=== PATIENT | male | born 1965 | race Hispanic/Latino ===

== ENCOUNTER 2018-05-15 22:15 | Emergency (ER) | payer BC, OTHER ==
[~2018-05-15 22:15] MED LIST: ACET1TAB12 PO; AMLO5TAB4 PO; ATOR20TA65 PO; CALC667C4 PO; FINA5TAB2 PO; Folic Acid/Vitamin B Comp W-C PO; LISI-613 PO; METO50 PO; SITA25TA5 PO
[2018-05-15] MEDS ORDERED: ONDANSETRON HCL 4 MG/2 ML VIAL ONE (23:56)
[2018-05-15] MEDS ORDERED: METOCLOPRAMIDE 10 MG/2 ML VIAL ONE (23:56)
[2018-05-15] MEDS ORDERED: MORPHINE SULFATE 2 MG/ML 1ML SYG ONE (23:57)
[2018-05-16] MEDS ORDERED: AMOXICILLIN/POTASSIUM CLAV 500-125 TABLET PO ONE (00:58)
[2018-05-16] MEDS ORDERED: FENTANYL CITRATE PF 50 MCG/1 ML 2ML VIAL ONE (01:05)
[2018-05-16] MEDS ORDERED: HYDROCODONE/ACETAMINOPHEN 5/325 MG TAB ONE (01:09)
== END 2018-05-16 01:23 | disposition home or self-care (01) ==
LOC: EDH 22:15
DX: S02.2XXA Fracture of nasal bones, initial encounter for closed fracture (principal); S05.11XA Contusion of eyeball and orbital tissues, right eye, initial encounter; W21.07XA Struck by softball, initial encounter; I10 Essential (primary) hypertension; E11.9 Type 2 diabetes mellitus without complications; E78.5 Hyperlipidemia, unspecified; Z94.0 Kidney transplant status; Y93.64 Activity, baseball; Y92.39 Other specified sports and athletic area as the place of occurrence of the external cause; Y99.8 Other external cause status
CPT/HCPCS: 70450; 70486; 96374; 96375 ×2; 99285; J2405; J2765; J3010

== ENCOUNTER 2019-02-01 07:22 | Emergency (ER) | payer BC ==
[2019-02-01 07:48] LABS: BASOPHILS % (AUTO) 1.4 % (0.0-5.0); EOSINOPHILS % (AUTO) 1.8 % (0.0-8.0); HEMATOCRIT 40.7 % (42-54); LYMPHOCYTES % (AUTO) 7.8 % (21.0-51.0); MEAN CORPUSCULAR HEMOGLOBIN 29.8 pg (27.0-33.0); MEAN CORPUSCULAR HGB CONC 34.9 g/dL (32.0-36.0); MEAN CORPUSCULAR VOLUME 85.3 fL (79-99); MONOCYTES % (AUTO) 5.8 % (3.0-13.0); NEUTROPHILS % (AUTO) 83.2 % (40.0-77.0); NUCLEATED RED BLOOD CELLS 0.1 % (0.0-0.19); PLATELET COUNT (AUTO) 240 K/uL (130-400); RED BLOOD CELL COUNT(AUTO) 4.77 MIL/uL (4.50-6.20); RED CELL DISTRIBUTION WIDTH 12.6 % (11.0-15.5); WHITE BLOOD COUNT (AUTO) 9.1 K/uL (4.8-10.8)
[2019-02-01 07:54] LABS: CREATININE 1.6 mg/dL (0.5-1.5); POTASSIUM 4.5 mmol/L (3.5-5.1)
[2019-02-01 08:03] LABS: ALBUMIN 3.8 g/dL (3.5-5.0); BILIRUBIN,DIRECT 0.1 mg/dL (0.0-0.3); BILIRUBIN,TOTAL 0.4 mg/dL (0.2-1.0); TOTAL PROTEIN, SERUM 7.1 g/dL (6.0-8.3)
[2019-02-01 09:00] LABS: ERYTHROCYTE SEDIMENTATION RATE 10 MM/HR (0-20)
[2019-02-01] MEDS ORDERED: MORPHINE SULFATE 2 MG/ML 1ML SYG ONE (09:47)
[2019-02-01] MEDS ORDERED: ACETAMINOPHEN EXTRA STRENGTH 500 MG TABLET ONE (09:47)
[2019-02-01] MEDS ORDERED: CEFTRIAXONE SODIUM 1 GM ONE (09:55)
[2019-02-01] MEDS ORDERED: SODIUM CHLORIDE 0.9% 100 ML IV ONE (09:55)
[2019-02-01] MEDS ORDERED: LEVOFLOXACIN 500 MG TABLET ONE (10:49)
== END 2019-02-01 11:32 | disposition home or self-care (01) ==
LOC: EDH 07:22
DX: L03.116 Cellulitis of left lower limb (principal); E11.9 Type 2 diabetes mellitus without complications; E78.5 Hyperlipidemia, unspecified; I10 Essential (primary) hypertension; I20.9 Angina pectoris, unspecified; Z87.891 Personal history of nicotine dependence; Z94.0 Kidney transplant status
CPT/HCPCS: 36415; 73630; 80048; 80076; 84145; 84550; 85025; 85651; 93971; 96374; 96375; 99285; J0696

== ENCOUNTER 2023-05-24 20:33 | Emergency (ER) | payer BC ==
[~2023-05-24] VITALS: Ht 182.9 cm; Wt 88.5 kg
[~2023-05-24 20:33] MED LIST changes: +FINA-37 PO; -FINA5TAB2 PO; -LISI-613 PO; +LISI20TA24 PO
[2023-05-24] MEDS ORDERED: DILTIAZEM 50MG VIAL IV ONE (21:30)
[2023-05-24] MEDS ORDERED: DILTIAZEM 25MG INJ IVP ONE (21:46)
[2023-05-24 21:49] LABS: CREATININE 1.7 mg/dL (0.5-1.5); POTASSIUM 4.1 mmol/L (3.5-5.1)
[2023-05-24 21:50] LABS: BASOPHILS # (AUTO) 0.05 K/uL (0.00-0.20); BASOPHILS % (AUTO) 0.6 % (0.0-5.0); EOSINOPHILS # (AUTO) 0.07 K/uL (0.00-0.70); EOSINOPHILS % (AUTO) 0.8 % (0.0-8.0); HEMATOCRIT 31.7 % (42-54); IMMATURE GRANULOCYTE ABSOLUTE 0.03 K/uL (0-1); LYMPHOCYTES # (AUTO) 0.1 K/uL (1.0-4.8); LYMPHOCYTES % (AUTO) 0.8 % (21.0-51.0); MEAN CORPUSCULAR HEMOGLOBIN 28.2 pg (27.0-33.0); MEAN CORPUSCULAR HGB CONC 32.5 g/dL (32.0-36.0); MEAN CORPUSCULAR VOLUME 86.8 fL (79-99); MONOCYTES # (AUTO) 0.6 K/uL (0.1-1.0); MONOCYTES % (AUTO) 7.2 % (3.0-13.0); NEUTROPHILS # (AUTO) 7.9 K/uL (1.8-7.7); NEUTROPHILS % (AUTO) 90.3 % (40.0-77.0); PLATELET COUNT (AUTO) 418 K/uL (130-400); RED BLOOD CELL COUNT(AUTO) 3.65 MIL/uL (4.50-6.20); RED CELL DISTRIBUTION WIDTH 12.8 % (11.0-15.5); WHITE BLOOD COUNT (AUTO) 8.7 K/uL (4.8-10.8)
[2023-05-24 21:53] LABS: ALBUMIN 3.6 g/dL (3.5-5.0); BILIRUBIN,TOTAL 0.3 mg/dL (0.2-1.0); TOTAL PROTEIN, SERUM 6.7 g/dL (6.0-8.3)
[2023-05-24 21:56] LABS: INR 0.99 (0.85-1.15); PROTHROMBIN TIME 11.5 SEC (9.6-11.6)
[2023-05-24 21:57] LABS: PARTIAL THROMBOPLASTIN TIME 27.3 SEC (26.3-35.5)
[2023-05-25 02:49] LABS: SARS-CoV-2, RNA, NAAT NEGATIVE SARS CoV-2 (NEGATIVE)
[2023-05-25] MEDS ORDERED: ENOXAPARIN SODIUM 100 MG/1 ML SQ ONE (04:12)
[2023-05-25] MEDS ORDERED: 0.9% NACL 500ML IV.SOLN 500 ML IV SCH (08:00)
[2023-05-25 08:01] LABS: APPEARANCE,URINE CLEAR (CLEAR); BILIRUBIN,URINE NEGATIVE (NEGATIVE); COLOR,URINE COLORLESS (YELLOW); GLUCOSE, URINE (UA) NEGATIVE (NEGATIVE); KETONES,URINE NEGATIVE (NEGATIVE); LEUKOCYTE ESTERASE ,URINE NEGATIVE Leu/uL (NEGATIVE); NITRATE,URINE NEGATIVE (NEGATIVE); OCCULT BLOOD,URINE NEGATIVE (NEGATIVE); PROTEIN,URINE NEGATIVE (NEGATIVE); UROBILINOGEN,URINE 0.2 mg/dL (0.2-1.0)
[2023-05-25 08:11] LABS: ADD UA MICROSCOPIC NO
[2023-05-25 08:16] VITALS: BP 115/80; PULSE 81; RESP 17; O2SAT 100
[2023-05-25] MEDS ORDERED: ENOXAPARIN SODIUM 100 MG/1 ML SQ SCH (09:00)
== END 2023-05-25 08:36 | disposition short-term general hospital (02) ==
LOC: EDH 20:33
DX: I48.91 Unspecified atrial fibrillation (principal); E11.9 Type 2 diabetes mellitus without complications; E78.00 Pure hypercholesterolemia, unspecified; I10 Essential (primary) hypertension; Z79.84 Long term (current) use of oral hypoglycemic drugs; Z79.899 Other long term (current) drug therapy; Z20.822 Contact with and (suspected) exposure to COVID-19
CPT/HCPCS: 99284; 96374; 71045; 87635; 84484; 80053; 85025; 85610; 85730; 81003; 36415; 93005; 96372; J3490 ×2; J7040; J1650

== ENCOUNTER 2023-12-12 19:07 | Emergency (ER) | payer OTHER, BC ==
[~2023-12-12] VITALS: Ht 182.9 cm; Wt 88.5 kg
[2023-12-12] MEDS: ceFAZolin SODIUM 1 GM VIAL IVPB STA (20:09)
[2023-12-12] MEDS: teTANUS/diphthERIA TOXOID [ADULT] 0.5 ML VIAL IM ONE (20:11)
[2023-12-12 20:23] VITALS: BP 156/83; PULSE 60; RESP 20; O2SAT 97
[2023-12-12] MEDS ORDERED: ACET-2079 PO (20:29)
[2023-12-12] MEDS ORDERED: CEPH500B PO (20:29)
[2023-12-12] MEDS: ONDANSETRON 4MG INJ IVP ONE (20:42)
[2023-12-12] MEDS: MORPHINE 2 MG SYG IVP ONE (20:42)
[2023-12-14] MEDS ORDERED: FERR159T2 PO (04:30)
[2023-12-14] MEDS ORDERED: ATOR20TA65 PO (04:30)
[2023-12-14] MEDS ORDERED: NEBI10TA12 PO (04:30)
[2023-12-14] MEDS ORDERED: INSLAN SQ (04:30)
[2023-12-14] MEDS ORDERED: TACR1GRA PO (04:30)
[2023-12-14] MEDS ORDERED: INSU100C14 SQ (04:30)
[2023-12-14] MEDS ORDERED: MYCO500T PO (04:30)
[2023-12-14] MEDS ORDERED: AEC81 PO (09:07)
== END 2023-12-12 21:22 | disposition home or self-care (01) ==
LOC: EDH 19:07
DX: S61.202A Unspecified open wound of right middle finger without damage to nail, initial encounter (principal); E11.9 Type 2 diabetes mellitus without complications; I10 Essential (primary) hypertension; Z79.84 Long term (current) use of oral hypoglycemic drugs; Z79.899 Other long term (current) drug therapy; Z90.89 Acquired absence of other organs; Z94.0 Kidney transplant status; Z98.890 Other specified postprocedural states; W26.8XXA Contact with other sharp object(s), not elsewhere classified, initial encounter; Y93.89 Activity, other specified; Y92.098 Other place in other non-institutional residence as the place of occurrence of the external cause; Y99.8 Other external cause status
CPT/HCPCS: 99284; 96365; 96375; 90714; 73140; 90471; J0690; J2270; J2405

== ENCOUNTER 2025-03-16 09:25 | Emergency (ER) | payer BC, OTHER ==
[~2025-03-16] VITALS: Ht 182.9 cm; Wt 97.5 kg
[~2025-03-16 09:25] MED LIST changes: -ACET1TAB12 PO; +AEC81 PO; -AMLO5TAB4 PO; -CALC667C4 PO; +CYAN-106 PO; +FERR159T2 PO; -FINA-37 PO; +FOLI0.4T6 PO; -Folic Acid/Vitamin B Comp W-C PO; +INSLAN SQ; +INSU100C14 SQ; -LISI20TA24 PO; -METO50 PO; +MYCO500T PO; +NEBI10TA13 PO; -SITA25TA5 PO; +TACR1GRA PO
--- NOTE | 2025-03-16 09:30 | ERN ---
General Chief Complaint: Other Problems Stated Complaint: PAIN TO LEFT FISTULA Time Seen by MD: 09:27 Source: patient History of Present Illness Initial Comments Patient is a 59-year-old male who came to the ER with complaint of pain in his left arm fistula. As per the patient, the fistula was made in 2014 for dialysis but the patient got a transplantation done and the fistula was used only for 3 weeks. The patient experienced swelling and pain in his left arm since the morning. As per the patient, the fistula is well defined usually on the arm but since morning the arm is swollen and the fistula sis not significantly defined. Timing/Duration: 4-6 hours Severity: mild Allergies: Coded Allergies: No Known Drug Allergies (Unverified Allergy, Unknown, 12/14/14) Home Meds Active Scripts Folic Acid (Folic Acid) 0.4 Mg Tablet, 1 MG PO DAILY for 30 Days, #30 TAB Prov:NICOLÁS RUBIO [facility] 12/17/23 Cyanocobalamin (Vitamin B-12) (Vitamin B12) 1,000 Mcg Tablet, 1000 MCG PO DAILY for 30 Days, #30 TAB Prov:NICOLÁS RUBIO [facility] 12/17/23 Reported Medications Aspirin (ASPIRIN 81 MG ECTAB) 81 Mg Ectab, 81 MG PO DAILY, TAB.EC 12/14/23 Insulin Lispro (Humalog) 100 Unit/Ml Cartridge, 0 SQ ACHS, CARTRIDGE HUMALOG SS 0-150 = 0 151-200= 4 201-250= 6 251-300= 8 301-350= 10 12/14/23 Nebivolol HCl (Nebivolol HCl) 10 Mg Tablet, 10 MG PO HS, TAB 12/14/23 Ferrous Sulfate, Dried (Iron) 159 Mg (45 Mg Iron) Tablet.er, 65 MG PO 0800AM, TAB 12/14/23 Mycophenolate Mofetil (Cellcept) 500 Mg Tablet, 500 MG PO BID, TAB 12/14/23 Tacrolimus (Prograf) 1 Mg Gran.pack, 1 MG PO BID, 12/14/23 Insulin Glargine,Hum.rec.anlog (Lantus) 100 Unit/Ml Inj, 10 UNITS SQ AM, ML 12/14/23 Atorvastatin Calcium (Atorvastatin Calcium) 20 Mg Tablet, 20 MG PO HS, TAB 12/14/14 Past Medical History Past Medical History: Diabetes-Type I, Diabetes-Type II, Hypertension, Other Medical History Other: KIDNEY TRANSPLANT Past Surgical History: Tonsillectomy, Other Surgical History Other: KIDNEY TRANSPLANT, LEFT KNEE, LEFT ANKLE Physical Exam Extremities Comment Patient has a av fistula on the left arm that was made in 2014 for dialysis Results Laboratory and Microbiology Lab and Micro Result Laboratory Tests Test 03/16/25 10:07 White Blood Count 10.9 K/uL (4.8-10.8) H Red Blood Count 3.83 MIL/uL (4.50-6.20) L Hemoglobin 12.5 g/dL (14.0-18.0) L Hematocrit 37.0 % (42-54) L Mean Corpuscular Volume 96.6 fL (79-99) Mean Corpuscular Hemoglobin 32.6 pg (27.0-33.0) Mean Corpuscular Hemoglobin Concent 33.8 g/dL (32.0-36.0) Red Cell Distribution Width 14.6 % (11.0-15.5) Platelet Count 213 K/uL (130-400) Mean Platelet Volume 8.8 fL (7.5-10.5) Nucleated Red Blood Cells 0.0 % (0.0-0.19) Sodium Level 131 mmol/L (136-145) L Potassium Level 4.5 mmol/L (3.5-5.1) Chloride Level 96 mmol/L (101-111) L Carbon Dioxide Level 30 mmol/L (21-32) Blood Urea Nitrogen 19 mg/dL (7-18) H Creatinine 1.3 mg/dL (0.5-1.3) Glomerular Filtration Rate Calc 64 mL/min (>90) Random Glucose 138 mg/dL (70-105) H Total Calcium 8.6 mg/dL (8.5-10.1) MDM MDM: Differential diagnosis: Partial superficial vein thrombosis, partial cephalic vein thrombosis, with the Rationale: Tests considered and ordered secondary to shared decision making include: Previous outside records reviewed: Old ER visits. Risk of complication and/or morbidity or mortality of patient management: None Medications-Per medication reconciliation Need for hospitalization: Patient does not meet criteria for hospitalization. Need for emergency major/minor surgery: No Patient is a 59-year-old gentleman coming in complaining of left arm discomfort. Patient has a fistula that has not been used. Ultrasound disclose a partial cephalic vein thrombosis. Based on general [employer] anticoagulation therapy is generally not routinely recommended for isolated partial superficial vein thrombosis of the cephalic vein unless high features are present such as a extensive thrombosis severe symptoms history of VTE. Patient will be discharged in stable condition I did advised him appropriate follow up with PCP and/or organ recovery coordinator for ongoing evaluation ED Course Orders Procedure Category Date Status Time Cbc Without LAB 03/16/25 Complete Differential 09:30 Basic Metabolic Panel LAB 03/16/25 Complete 09:30 Us Venous Doppler US 03/16/25 Resulted Unilateral 09:30 Vital Signs Date Time Temp Pulse Resp B/P (MAP) Pulse Ox O2 Delivery O2 Flow Rate FiO2 03/16/25 10:17 98.1 64 19 168/90 97 Room Air* 0 21 03/16/25 09:26 97.9 70 16 170/99 99 Room Air 0 DX & DISP Disposition: Discharge Departure Impression: Primary Impression: Partial thrombosis Condition: Stable Additional Instructions: *Follow up with your primary care physician in 2 - 3 days after discharge. *Continue all medications as prescribed. Do not discontinue or change dosages without consulting your PCP. *Gradually resume normal activities as tolerated. *Continue a balanced diet . Reduce salt intake to help manage BP. *Seek immediate medical attention if you experience chest pain, SOB or severe headache. Referrals: JUNITO ROSALES MD (PCP) ALXI FARIAS MD Time of Disposition: 11:15 ANAHY BROOKS MD Mar 16, 2025 09:30 NORRIS ARIAS MD Mar 16, 2025 11:18
[2025-03-16 10:16] LABS: NUCLEATED RED BLOOD CELLS 0.0 % (0.0-0.19); PLATELET COUNT (AUTO) 213.0 K/uL (130-400); RED BLOOD CELL COUNT(AUTO) 3.83 MIL/uL (4.50-6.20); RED CELL DISTRIBUTION WIDTH 14.6 % (11.0-15.5); WHITE BLOOD COUNT (AUTO) 10.9 K/uL (4.8-10.8)
[2025-03-16 10:17] VITALS: BP 168/90; PULSE 64; RESP 19; TEMP 98; O2SAT 97
[2025-03-16 10:24] LABS: CREATININE 1.3 mg/dL (0.5-1.3); GLOMERULAR FILTR. RATE CALC 64.0 mL/min (>90); GLUCOSE,RANDOM 138.0 mg/dL (70-105); SODIUM SERUM 131.0 mmol/L (136-145); UREA NITROGEN, BLOOD 19.0 mg/dL (7-18)
--- NOTE | 2025-03-16 10:59 | HMCIMG ---
EXAMINATION: Ultrasound left upper limb venous Doppler. CLINICAL HISTORY: Left arm swelling. TECHNIQUE: Grayscale, color Doppler, and spectral Doppler evaluation of the left upper limb venous system was performed with compression techniques. COMPARISON: None provided. FINDINGS: LEFT UPPER LIMB VEINS: Partial thrombus involving the left cephalic vein, which is enlarged and measures 15 mm. DEEP VEINS: The basilic, axillary, and subclavian veins are patent and compressible with normal respiratory phasicity and augmentation. SUPERFICIAL VEINS: The basilic vein is patent without thrombus. No other superficial venous thrombosis. LYMPH NODES: No enlarged lymph nodes. SOFT TISSUES: The surrounding soft tissues are unremarkable. Non-functioning AV fistula. IMPRESSION: Partial thrombus in the enlarged left cephalic vein. No evidence of deep vein thrombosis in the left upper limb. /[place]
--- NOTE | 2025-03-16 11:41 | NUR ---
DC PATIENT WAS DC'D BY DR ARIAS I EXPLAINED TO PATIENT TO FOLLOW UP WITH THEIR PCP IN 2-3 DAYS, PROVIDED INFO BASED ON DIAGNOSIS, AND LABWORK WELL ULTRASOUND RESULTS, I ALSO PROVIDED PATIENT WITH WARM PACKS, PATIENT AMBULATED OUT OF ED, NO COMPLICATIONS
== END 2025-03-16 11:30 | disposition home or self-care (01) ==
LOC: EDH 09:25
DX: I82.890 Acute embolism and thrombosis of other specified veins (principal); E10.9 Type 1 diabetes mellitus without complications; I10 Essential (primary) hypertension; Z79.621 Long term (current) use of calcineurin inhibitor; Z79.624 Long term (current) use of inhibitors of nucleotide synthesis; Z79.82 Long term (current) use of aspirin; Z90.89 Acquired absence of other organs; Z94.0 Kidney transplant status
CPT/HCPCS: 36415; 80048; 85027; 93971; 99284

== ENCOUNTER 2025-03-20 13:53 | Emergency (ER) | payer OTHER, BC ==
[~2025-03-20] VITALS: Ht 182.9 cm; Wt 96.6 kg
--- NOTE | 2025-03-20 14:11 | NUR ---
PT IN ROOM
[2025-03-20 15:13] LABS: IMMATURE GRANULOCYTE ABSOLUTE 0.04 K/uL (0-1); NUCLEATED RED BLOOD CELLS 0.0 % (0.0-0.19); PLATELET COUNT (AUTO) 312 K/uL (130-400); RED BLOOD CELL COUNT(AUTO) 3.72 MIL/uL (4.50-6.20); RED CELL DISTRIBUTION WIDTH 14.7 % (11.0-15.5); WHITE BLOOD COUNT (AUTO) 11.3 K/uL (4.8-10.8)
[2025-03-20 15:22] LABS: CREATININE 1.3 mg/dL (0.5-1.3); GLOMERULAR FILTR. RATE CALC 64.0 mL/min (>90); GLUCOSE,RANDOM 172.0 mg/dL (70-105); SODIUM SERUM 132.0 mmol/L (136-145); UREA NITROGEN, BLOOD 16.0 mg/dL (7-18)
--- NOTE | 2025-03-20 15:23 | NUR ---
Malaika solitario in ED - 03/20/25 at 1525 by [email or web address] STEC NOTIFIED OF EMERGENCY TRANSFER
[2025-03-20] MEDS: 0.9%NACL 1000ML 1,000 ML IV SCH (16:00)
[2025-03-20] MEDS: NA ZIRCON CYCLOSIL(LOKELMA 10GM) PO SCH (16:01)
--- NOTE | 2025-03-20 16:33 | HMCIMG ---
EXAM: US for Deep Venous Thrombosis, right Upper Extremity. CLINICAL HISTORY: r/o dvt TECHNIQUE: Real-time ultrasound scan of the veins of the right upper extremity with color Doppler flow, spectral waveform analysis and compression. COMPARISON: None provided. FINDINGS: VEINS: Left brachiocephalic arteriovenous fistula in place, S/P 2014. The fistula is no longer in use following renal transplantation. Echogenic thrombus is identified within the cephalic vein, associated with an enlarged lumen and absent flow, consistent with cephalic vein thrombosis. The internal jugular and subclavian veins demonstrate flow. The axillary, basilic, and brachial veins are echolucent, compressible, and demonstrate normal color Doppler flow. SOFT TISSUES: No acute finding. IMPRESSION: Left brachiocephalic arteriovenous fistula in place, S/P 2014. The fistula is no longer in use following renal transplantation. Echogenic thrombus is identified within the cephalic vein, associated with an enlarged lumen and absent flow, consistent with left cephalic vein thrombosis. /[place]
[2025-03-20] MEDS ORDERED: CEPH500C2 PO (16:54)
--- NOTE | 2025-03-20 16:57 | ERN ---
General Chief Complaint: Other Problems Stated Complaint: LEFT ARM NON-FUNCTIONING FISTULA Time Seen by MD: 14:00 Time Seen by Midlevel: 14:00 Source: patient History of Present Illness Initial Comments The patient is a 51-year-old male with a past medical history of a renal transplant presenting to the ER for evaluation of redness and swelling to his left upper arm. The patient has an AV fistula in place to the left upper arm but is no longer functioning after he had the renal transplant. He was seen in our emergency department four days ago for the same complaints where he had an ultrasound performed which revealed a superficial thrombus he was discharged home. Over the next couple of days he developed worsening redness to the upper extremity. He specifically denies any fever, chills, or any other symptoms at this time. Allergies: Coded Allergies: No Known Drug Allergies (Unverified Allergy, Unknown, 12/14/14) Home Meds Active Scripts Folic Acid (Folic Acid) 0.4 Mg Tablet, 1 MG PO DAILY for 30 Days, #30 TAB [facility]23 Cyanocobalamin (Vitamin B-12) (Vitamin B12) 1,000 Mcg Tablet, 1000 MCG PO DAILY for 30 Days, #30 TAB Prov:NICOLÁS RUBIO [facility] 12/17/23 Reported Medications Aspirin (ASPIRIN 81 MG ECTAB) 81 Mg Ectab, 81 MG PO DAILY, TAB.EC 12/14/23 Insulin Lispro (Humalog) 100 Unit/Ml Cartridge, 0 SQ ACHS, CARTRIDGE HUMALOG SS 0-150 = 0 151-200= 4 201-250= 6 251-300= 8 301-350= 10 12/14/23 Nebivolol HCl (Nebivolol HCl) 10 Mg Tablet, 10 MG PO HS, TAB 12/14/23 Ferrous Sulfate, Dried (Iron) 159 Mg (45 Mg Iron) Tablet.er, 65 MG PO 0800AM, T AB 12/14/23 Mycophenolate Mofetil (Cellcept) 500 Mg Tablet, 500 MG PO BID, TAB 12/14/23 Tacrolimus (Prograf) 1 Mg Gran.pack, 1 MG PO BID, 12/14/23 Insulin Glargine,Hum.rec.anlog (Lantus) 100 Unit/Ml Inj, 10 UNITS SQ AM, ML 12/14/23 Atorvastatin Calcium (Atorvastatin Calcium) 20 Mg Tablet, 20 MG PO HS, TAB 12/14/14 Past Medical History Past Medical History: Diabetes-Type I, Diabetes-Type II, Hypertension, Renal Failure, Other Medical History Other: KIDNEY TRANSPLANT Past Surgical History: Tonsillectomy, Other, LAVA Surgical History Other: KIDNEY TRANSPLANT, LEFT KNEE, LEFT ANKLE ROS Dictation CONSTITUTIONAL: Negative except for HPI HEAD/FACE: Negative except for HPI EENT: Negative except for HPI RESPIRATORY: Negative except for HPI GASTROINTESTINAL/ABDOMINAL: Negative except for HPI GENITOURINARY: Negative except for HPI MUSCULOSKELETAL: Negative except for HPI INTEGUMENTARY: Negative except for HPI NEUROLOGICAL/PSYCH: Negative except for HPI HEMATOLOGIC/LYMPHATIC: Negative except for HPI All Systems Negative, Except as noted above. 13 point review of systems assessed and all negative except for above. Physical Exam Physical Exam Dictation Vital Signs reviewed General Appearance: Alert, oriented x 3, no acute distress, well developed, nourished. Head and Face: non-traumatic. Eyes: PERRL, pink conjunctivas, eyelid no trauma, anterior chamber with arcus senilis. Ears: Pinnas intact and no signs of trauma or erythema ear canals clear and no discharge TM no erythema Nose: No discharge, no bleeding. Oropharynx: Mouth normal, tongue pink, pharynx clear,no erythema, tonsils no exudates, no abscesses noted, mucous membrane moist Neck: Supple, non-tender, no thyromegaly, no masses, no JVD, no bruits Breast:Deferred Chest:No tenderness, no crepitus, no paradoxical movement, no retractions Lungs:Clear, well-ventilated, symmetric, no rales, no wheezing, no rhonchi, no stridor, good breath sounds bilaterally Heart: Regular rate, regular rhythm, no murmur, no gallops Vascular: no peripheral edema, Abdomen: Soft, positive bowel sounds, nondistended, no guarding, nontender, no rebound, no masses no hepatomegaly, no splenomegaly, no Carcamo's sign, no hernias. Rectal: Deferred Genital: Deferred Neurological: Normal speech, motor function intact, sensory function intact Musculoskeletal: Neck nontender, full range of motion, back nontender, full range of motion, Extremities: nontender, full range of motion Skin: Color pink, dry, no turgor, no rash, no lacerations, no abrasions, no contusions. Lymphatic: Deferred Results Laboratory and Microbiology Lab and Micro Result Laboratory Tests Test 03/20/25 14:42 White Blood Count 11.3 K/uL (4.8-10.8) H Red Blood Count 3.72 MIL/uL (4.50-6.20) L Hemoglobin 12.2 g/dL (14.0-18.0) L Hematocrit 36.0 % (42-54) L Mean Corpuscular Volume 96.8 fL (79-99) Mean Corpuscular Hemoglobin 32.8 pg (27.0-33.0) Mean Corpuscular Hemoglobin Concent 33.9 g/dL (32.0-36.0) Red Cell Distribution Width 14.7 % (11.0-15.5) Platelet Count 312 K/uL (130-400) Mean Platelet Volume 9.1 fL (7.5-10.5) Immature Granulocyte % (Auto) 0.4 % (0-1) Neutrophils (%) (Auto) 91.4 % (40.0-77.0) H Lymphocytes (%) (Auto) 5.1 % (21.0-51.0) L Monocytes (%) (Auto) 2.7 % (3.0-13.0) L Eosinophils (%) (Auto) 0.3 % (0.0-8.0) Basophils (%) (Auto) 0.1 % (0.0-5.0) Neutrophils # (Auto) 10.3 K/uL (1.8-7.7) H Lymphocytes # (Auto) 0.6 K/uL (1.0-4.8) L Monocytes # (Auto) 0.3 K/uL (0.1-1.0) Eosinophils # (Auto) 0.03 K/uL (0.00-0.70) Basophils # (Auto) 0.01 K/uL (0.00-0.20) Absolute Immature Granulocyte (auto 0.04 K/uL (0-1) Nucleated Red Blood Cells 0.0 % (0.0-0.19) White Cell Morphology Comment See comments Sodium Level 132 mmol/L (136-145) L Potassium Level 5.2 mmol/L (3.5-5.1) H Chloride Level 98 mmol/L (101-111) L Carbon Dioxide Level 27 mmol/L (21-32) Blood Urea Nitrogen 16 mg/dL (7-18) Creatinine 1.3 mg/dL (0.5-1.3) Glomerular Filtration Rate Calc 64 mL/min (>90) Random Glucose 172 mg/dL (70-105) H Lactic Acid Level 1.7 mmol/L (0.8-2.5) Total Calcium 9.3 mg/dL (8.5-10.1) Labs Reviewed?: Yes MDM MDM: The patient is a 51-year-old male with a past medical history of a renal transplant presenting to the ER for evaluation of redness and swelling to his left upper arm. The patient has an AV fistula in place to the left upper arm but is no longer functioning after he had the renal transplant. He was seen in our emergency department four days ago for the same complaints where he had an ultrasound performed which revealed a superficial thrombus he was discharged home. Over the next couple of days he developed worsening redness to the upper extremity. He specifically denies any fever, chills, or any other symptoms at this time. Plan On physical examination there is some mild erythema to the left upper arm surrounding the AV fistula. No drainable abscesses noted. Vital signs are stable. Patient is afebrile and nontoxic appearing. His CBC shows slight leukocytosis with a left shift. His chemistries show an elevated potassium level of 5.3. The patient was given Lokelma p.o. and was started on IV ceftriaxone for presumed cellulitis. The remainder of his blood work is stable. His lactic acid is normal. His Doppler ultrasound is unchanged when compared to the ultrasound performed four days ago. No evidence of deep vein thrombosis. The patient will be discharged home on oral antibiotics. He has an appointment with his specialist up in [place] on Sunday and another appointment with his primary care doctor next week on Sunday. He was advised to keep these appointments or return to the emergency department if he develops any new or worsening symptoms. The patient is comfortable with this plan and all questions have been answered. Differential diagnosis: Cellulitis, abscess, DVT There are no social concerns with this patient. Prescription drug management Prescriptions will include: Cephalexin Medical management and examination interpretation discussions were had by me with other qualified healthcare professionals as indicated for the patient's care. ED Course Orders Procedure Category Date Status Time Cbc With Differential LAB 03/20/25 Complete 14:32 Basic Metabolic Panel LAB 03/20/25 Complete 14:32 Lactic Acid LAB 03/20/25 Complete 14:32 Us Venous Doppler US 03/20/25 Resulted Unilateral 14:32 0.9%Nacl 1000ml (Ns PHA 03/20/25 In Process 1000ml) 16:00 Na Zircon PHA 03/20/25 Logged Cyclosil-Lokelma 10g 16:00 Ceftriaxone 1g Vial PHA 03/20/25 In Process (Rocephine 1g Inj) 16:00 Current Medications Medications (Trade) Dose Ordered Sig/Jackson Route PRN Reason Start Time Stop Time Status Last Admin Dose Admin Ceftriaxone Sodium (ROCEphine 1G INJ) 1 gm ONCE IVPB 03/20/25 16:00 03/20/25 20:00 03/20/25 16:00 Sodium Chloride 1,000 ml @ 0 mls/hr ONCE IV 03/20/25 16:00 03/20/25 20:00 03/20/25 16:00 Sodium Zirconium Cyclosilicate (Lokelma 10gm Powder) 10 gm ONCE PO 03/20/25 16:00 03/20/25 20:00 03/20/25 16:01 Vital Signs Date Time Temp Pulse Resp B/P (MAP) Pulse Ox O2 Delivery O2 Flow Rate FiO2 03/20/25 16:18 97.7 64 12 135/76 99 Room Air* 0 03/20/25 14:11 97.7 69 18 174/91 99 Room Air* 0 03/20/25 13:56 97.7 69 18 174/91 99 Room Air DX & DISP Disposition: Discharge Departure Impression: Primary Impression: Cellulitis of left upper arm Additional Impressions: Superficial vein thrombosis, History of kidney transplant Condition: Stable Scripts Cephalexin (Cephalexin) 500 Mg Capsule 1 CAP PO TID for 10 Days, #30 CAP 0 Refills Prov: MARIANA CONNELL PAC 03/20/25 Referrals: PARVIZ ROCA (PCP) I have reviewed the case, and I agree with, Diagnosis and Plan I performed the substantive portion of the visit. I have reviewed and personally made and approve the management plan that is documented in the note by myself or the SALUD. I acknowledge for responsibility for the patient's management plan. MARIANA CONNELL PAC Mar 20, 2025 16:57
[2025-03-20 17:27] VITALS: BP 128/86; PULSE 65; RESP 12; TEMP 97.7; O2SAT 98
== END 2025-03-20 17:32 | disposition home or self-care (01) ==
LOC: EDH 13:53
DX: L03.114 Cellulitis of left upper limb (principal); I82.612 Acute embolism and thrombosis of superficial veins of left upper extremity; E10.9 Type 1 diabetes mellitus without complications; I10 Essential (primary) hypertension; I77.0 Arteriovenous fistula, acquired; Z79.621 Long term (current) use of calcineurin inhibitor; Z79.624 Long term (current) use of inhibitors of nucleotide synthesis; Z79.82 Long term (current) use of aspirin; Z90.89 Acquired absence of other organs; Z94.0 Kidney transplant status
CPT/HCPCS: 99285; 96365; 93971; 96361; 80048; 85025; 83605; 36415; J7030; J0696

== ENCOUNTER 2025-03-22 10:41 | Emergency (ER) | payer OTHER, BC ==
[~2025-03-22] VITALS: Ht 182.9 cm; Wt 96.6 kg
[~2025-03-22 10:41] MED LIST changes: +CEPH500C2 PO
--- NOTE | 2025-03-22 10:46 | ERN ---
ED Note History of Present Illness Stated Complaint: TACHCARDIA Chief Complaint: Rapid Heart Rate Time Seen by MD: 10:45 Time Seen by Midlevel: 10:45 Dictation: Mr. Oneil is a 59-year-old gentleman with history of hypertension, hyperlipidemia, type 2 diabetes, anemia of chronic disease, atrial fibrillation, and CKD (post renal transplant x2) who presented to the emergency department this morning for evaluation of rapid heart rate. He states that he woke at 0300 supported not feeling well . He states that he has been having intermittent palpitations, fatigue, and dyspnea on exertion. His states that BP readings were elevated and "inconsistent" this morning. He is currently on an antibiotic (cephalexin) for a an infection to left upper arm at site of non functioning AV fistula. He denies fever, chills, cough, chest pain, edema, abdominal pain, nausea, vomiting, hematemesis, constipation, diarrhea, melena, hematochezia, dysuria, headache, dizziness, or focal weakness/paresthesia Allergies: Coded Allergies: No Known Drug Allergies (Unverified Allergy, Unknown, 12/14/14) Home Meds Active Scripts Cephalexin (Cephalexin) 500 Mg Capsule, 1 CAP PO TID for 10 Days, #30 CAP 0 Refills Prov:MARIANA CONNELL 03/20/25 Folic Acid (Folic Acid) 0.4 Mg Tablet, 1 MG PO DAILY for 30 Days, #30 TAB Prov:NICOLÁS RUBIO [facility] 12/17/23 Cyanocobalamin (Vitamin B-12) (Vitamin B12) 1,000 Mcg Tablet, 1000 MCG PO DAILY for 30 Days, #30 TAB Prov:NICOLÁS RUBIO [facility] 12/17/23 Reported Medications Aspirin (ASPIRIN 81 MG ECTAB) 81 Mg Ectab, 81 MG PO DAILY, TAB.EC 12/14/23 Insulin Lispro (Humalog) 100 Unit/Ml Cartridge, 0 SQ ACHS, CARTRIDGE HUMALOG SS 0-150 = 0 151-200= 4 201-250= 6 251-300= 8 301-350= 10 12/14/23 Nebivolol HCl (Nebivolol HCl) 10 Mg Tablet, 10 MG PO HS, TAB 12/14/23 Ferrous Sulfate, Dried (Iron) 159 Mg (45 Mg Iron) Tablet.er, 65 MG PO 0800AM, TAB 12/14/23 Mycophenolate Mofetil (Cellcept) 500 Mg Tablet, 500 MG PO BID, TAB 12/14/23 Tacrolimus (Prograf) 1 Mg Gran.pack, 1 MG PO BID, 12/14/23 Insulin Glargine,Hum.rec.anlog (Lantus) 100 Unit/Ml Inj, 10 UNITS SQ AM, ML 12/14/23 Atorvastatin Calcium (Atorvastatin Calcium) 20 Mg Tablet, 20 MG PO HS, TAB 12/14/14 Past Medical History Past Medical History: A-Fib, Diabetes-Type II, Hypertension, Renal Failure, Other Additional Past Medical Hx: KIDNEY TRANSPLANT Surgical History: Tonsillectomy, Other, LAVA Surgical History Other: KIDNEY TRANSPLANT, LEFT KNEE, LEFT ANKLE PSYCH History: no pertinent psych hx Social History: Negative, Lives with family RN Note Reviewed/Agreed w/PFSH: Yes Review of System Dictation REVIEW OF SYSTEMS: CONSTITUTIONAL: Patient denies fevers, chills, sweats and weight changes. Reports fatigue EYES: Patient denies any visual symptoms. EARS, NOSE, AND THROAT: No difficulties with hearing. No symptoms of rhinitis or sore throat. CARDIOVASCULAR: Patient denies chest pains, orthopnea and paroxysmal nocturnal dyspnea. Reports palpitations/rapid heart rate. States he has a history of atrial fibrillation. RESPIRATORY: No wheezing or cough. Reports shortness of breath with activity; walking. GI: No nausea, vomiting, diarrhea, constipation, abdominal pain, hematochezia or melena. : No urinary hesitancy or dribbling. No nocturia or urinary frequency. No abnormal urethral discharge. MUSCULOSKELETAL: No myalgias or arthralgias. NEUROLOGIC: No chronic headaches, no seizures. Patient denies numbness, tingling or weakness. PSYCHIATRIC: Patient denies problems with mood disturbance. No problems with anxiety. ENDOCRINE: No excessive urination or excessive thirst. DERMATOLOGIC: States he is currently on cephalexin for skin infection to left upper arm at site of non functioning left AV fistula. Initial Vital Sign VS Vital Signs Date Time Temp Pulse Resp B/P (MAP) Pulse Ox O2 Delivery O2 Flow Rate FiO2 03/22/25 10:44 97.9 129 18 146/89 98 Room Air 03/22/25 11:06 0 21 Physical Exam Dictation Vital signs: Reviewed. Afebrile Constitutional: No acute distress. Cough. Significant other at bedside. Head/Face: Normocephalic, atraumatic. Eyes: Periorbital areas with no swelling, redness, or edema. Lids and lashes are normal. Conjunctival injection is absent. Sclera anicteric. Pupils equal, round, reactive to light. ENT: Pinnas intact and no signs of trauma or erythema. Ear canals clear and no discharge. TMs no erythema. No nasal discharge or bleeding noted. Oropharynx with no exudate, redness, swelling, masses, exudates, or evidence of obstruction. Uvula midline. Mucous membranes moist. Neck: Trachea midline, no masses palpated, and no cervical lymphadenopathy. No swelling. Supple, full range of motion. Chest/Axilla: No tenderness, no crepitus, no paradoxical movement, no retractions. Cardiovascular: Regular rate, regular rhythm, no murmur, no gallops. Symmetric pulses. No peripheral edema. As non functioning AV fistula left upper arm. BP 146/89. Twelve lead EKG reflects atrial fibrillation with ventricular rate 120. Respiratory: Respirations even and unlabored. Lung sounds clear; no wheezes, rales or rhonchi. Room air SpO2 98%. Gastrointestinal: Inspection is normal. No distention is appreciated. Bowel sounds are normal. No mass or organomegaly . There is no tenderness. No rebound. No rigidity. No voluntary or involuntary guarding. No Carcamo's sign. Neurological: Normal speech, gross motor function intact, gross sensory function intact. No focal weakness/Paresthesia. Musculoskeletal/Extremities: All extremities have full range of motion, no pain or tenderness on palpation. Symmetric pulses. Integumentary: Intact. Skin is normal color, warm and dry. Cap refill less than 3 seconds. Results (Laboratory/Radiology) Laboratory/Radiology Laboratory Tests Test 03/22/25 11:04 03/22/25 11:23 White Blood Count 11.4 K/uL (4.8-10.8) H Red Blood Count 3.96 MIL/uL (4.50-6.20) L Hemoglobin 12.9 g/dL (14.0-18.0) L Hematocrit 37.3 % (42-54) L Mean Corpuscular Volume 94.2 fL (79-99) Mean Corpuscular Hemoglobin 32.6 pg (27.0-33.0) Mean Corpuscular Hemoglobin Concent 34.6 g/dL (32.0-36.0) Red Cell Distribution Width 14.3 % (11.0-15.5) Platelet Count 369 K/uL (130-400) Mean Platelet Volume 9.0 fL (7.5-10.5) Immature Granulocyte % (Auto) 0.4 % (0-1) Neutrophils (%) (Auto) 87.6 % (40.0-77.0) H Lymphocytes (%) (Auto) 6.8 % (21.0-51.0) L Monocytes (%) (Auto) 4.8 % (3.0-13.0) Eosinophils (%) (Auto) 0.2 % (0.0-8.0) Basophils (%) (Auto) 0.2 % (0.0-5.0) Neutrophils # (Auto) 10.0 K/uL (1.8-7.7) H Lymphocytes # (Auto) 0.8 K/uL (1.0-4.8) L Monocytes # (Auto) 0.5 K/uL (0.1-1.0) Eosinophils # (Auto) 0.02 K/uL (0.00-0.70) Basophils # (Auto) 0.02 K/uL (0.00-0.20) Absolute Immature Granulocyte (auto 0.04 K/uL (0-1) Nucleated Red Blood Cells 0.0 % (0.0-0.19) Sodium Level 132 mmol/L (136-145) L Potassium Level 4.5 mmol/L (3.5-5.1) Chloride Level 98 mmol/L (101-111) L Carbon Dioxide Level 24 mmol/L (21-32) Blood Urea Nitrogen 22 mg/dL (7-18) H Creatinine 1.4 mg/dL (0.5-1.3) H Glomerular Filtration Rate Calc 58 mL/min (>90) Random Glucose 213 mg/dL (70-105) H Total Calcium 9.1 mg/dL (8.5-10.1) Magnesium Level 1.50 mg/dL (1.80-2.40) L Total Bilirubin 0.4 mg/dL (0.2-1.0) Direct Bilirubin 0.1 mg/dL (0.0-0.3) Aspartate Amino Transf (AST/SGOT) 10 U/L (10-37) Alanine Aminotransferase (ALT/SGPT) 17 U/L (12-78) Alkaline Phosphatase 104 U/L (50-136) Troponin I High Sensitivity 18 ng/L (4-75) B-Type Natriuretic Peptide 233 pg/mL (0-100) H Total Protein 7.2 g/dL (6.0-8.3) Albumin 3.4 g/dL (3.5-5.0) L Urine Color LIGHT-YELLOW (YELLOW) Urine Appearance CLEAR (CLEAR) Urine pH 6.0 (5.0-8.0) Urine Specific [place] 1.016 (1.001-1.031) Urine Protein NEGATIVE mg/dL (NEGATIVE) Urine Glucose (UA) 200 mg/dL (NEGATIVE) H Urine Ketones NEGATIVE mg/dL (NEGATIVE) Urine Occult Blood SMALL (NEGATIVE) H Urine Nitrate NEGATIVE (NEGATIVE) Urine Bilirubin NEGATIVE mg/dL (NEGATIVE) Urine Urobilinogen 0.2 mg/dL (0.2-1.0) Urine Leukocyte Esterase NEGATIVE [place]/uL Urine RBC 0-1 /HPF (0-1) Urine WBC 0-1 /HPF (0-1) Urine Squamous Epithelial Cells None Seen /HPF (0-2) Urine Bacteria Rare /HPF (None Seen) Labs Reviewed?: Yes EKG Comment: EKG Interpretation: Time Reviewed: 1057 Ventricular rate: 120 bpm [place] Interval: N/A QRS duration: 80 ms Atrial fibrillation with ventricular rate 120. No ST elevation EKG Reviewed and interpreted by Dr. Flash Arias EKG Interpretation: REPEAT Time Reviewed: 1132 Ventricular rate: 72 bpm [place] Interval: 151 ms QRS duration: [address] segment elevation or depression. Clinical impression: sinus rhythm EKG Reviewed and interpreted by Dr. Flash Arias X-RAY Comment: PATIENT: RON ONEIL MR#: [id number] : 1965 SEX: M AGE: 59 LOCATION: [facility] ORDER 1047 STATUS: REG ER REPORT#: [id number] SERVICE 1046 REASON: shortness of breath ORDERING PHYSICIAN: VANI JEFFREY PROCEDURE: CXR1VW - CHEST 1VW EXAM: CR Chest, 1 View. CLINICAL HISTORY: shortness of breath COMPARISON: None provided. FINDINGS: LUNGS: There is no mass, infiltrate, or acute pulmonary abnormality. PLEURAL SPACES: No pleural effusion or pneumothorax. MEDIASTINUM: The cardiomediastinal silhouette is within normal limits. BONES: No acute osseous abnormality. IMPRESSION: No acute cardiopulmonary pathology is evident. /[place] DICTATED BY: SMITH FINLEY Jr., MD DATE: 03/22/25 1232 ELECTRONICALLY SIGNED BY: SMITH FINLEY Jr., MD DATE: 03/22/25 1232 ED Course ED Course Orders Procedure Category Date Status Time Saline Lock Iv CPOE 03/22/25 Transmitted 10:46 Cbc With Differential LAB 03/22/25 Complete 10:46 Basic Metabolic Panel LAB 03/22/25 Complete 10:46 Magnesium LAB 03/22/25 Complete 10:46 Hepatic Function Panel LAB 03/22/25 Complete 10:46 Troponin I High LAB 03/22/25 Complete Sensitivity 10:46 B-Type Natriuretic LAB 03/22/25 Complete Peptide 10:46 12 Lead Ekg Tracing- EKG 03/22/25 Resulted Technical 10:46 Chest 1vw RAD 03/22/25 Resulted 10:46 Metoprolol Tartrate PHA 03/22/25 Complete (Lopressor) 11:30 12 Lead Ekg Tracing- EKG 03/22/25 Resulted Technical 11:40 Urinalysis Profile LAB 03/22/25 Complete 11:45 Metoprolol Tartrate PHA 03/22/25 Complete 25 Mg Tab (Lopressor 12:00 Magnesium 2gm Premix PHA 03/22/25 Complete 50ml (Magnesium 2gm 13:00 Magnesium Oxide PHA 03/22/25 Complete (Mag-Ox) 13:00 Current Medications Medications (Trade) Dose Ordered Sig/Jackson Route PRN Reason Start Time Stop Time Status Last Admin Dose Admin Magnesium Oxide (Mag-Ox) 400 mg ONCE ONCE PO 03/22/25 13:00 03/22/25 13:01 DC Magnesium Sulfate 50 ml @ 0 mls/hr PROTOCOL IV 03/22/25 13:00 03/22/25 14:34 DC 03/22/25 13:11 Metoprolol Tartrate (loprESSOR) 5 mg ONCE ONCE IV 03/22/25 11:30 03/22/25 11:45 DC Metoprolol Tartrate (loprESSOR) 25 mg ONCE ONCE PO 03/22/25 12:00 03/22/25 12:01 DC 03/22/25 13:01 Vital Signs Date Time Temp Pulse Resp B/P (MAP) Pulse Ox O2 Delivery O2 Flow Rate FiO2 03/22/25 14:31 98.4 76 20 152/89 98 Room Air* 0 21 03/22/25 13:30 72 20 172/101 97 Room Air* 0 21 03/22/25 12:30 76 20 169/93 100 Room Air* 0 21 03/22/25 11:06 98.4 122 20 150/110 95 Room Air* 0 21 03/22/25 10:44 97.9 129 18 146/89 98 Room Air Patient arrived slightly anxious with elevated blood pressure and 12 lead EKG reflected atrial fibrillation with rapid ventricular response (ventricular rate 120). Patient spontaneously converted back to sinus rhythm with a rate of 72 and stated he felt much better. X-ray was unremarkable with clear lung sarabia. Laboratory findings as noted below. WBCs 11.4, H/H are 12.9/37.3, Na/Cl 132/98, BNP 233, albumin 3.4, glucose 213, BUN/CR 22/1.4, and mg 1.5 UA clear. He stated that he has had issues with low magnesium levels in the past. He was anxious for discharge to home. While in the ED he received dose 2 g Mag sulfate IV as well as magnesium oxide 400 mg p.o. x1. Medical Decision Making MDM MDM: Differential diagnosis: AFib with RVR, CHF exacerbation, ACS, electrolyte derangement Rationale: Tests considered and ordered secondary to shared decision making include: Lab, chest x-ray, EKG Previous outside records reviewed: Old ER visits. Risk of complication and/or morbidity or mortality of patient management: None Medications-Per medication reconciliation Need for hospitalization: Patient does not meet criteria for hospitalization. Need for emergency major/minor surgery: No There are no social concerns with this patient. Prescription drug management: Continue home meds Prescriptions will include symptomatic care Patient's prior external medical records from other ER visits were reviewed by me as indicated. Prior testing and results from previous visits were reviewed. Prior tests were taken into account with medical decision making and resource utilization, independent historian/historians were used to obtain complete medical history. I independently interpreted the test that were performed, results were reviewed by me and considered findings on radiology if ordered. Medical management and examination interpretation discussions were had by me with other qualified healthcare professionals as indicated for the patient's care. DX & DISP Disposition: Discharge Departure Impression: Primary Impression: Atrial fibrillation with RVR Additional Impression: Hypomagnesemia Condition: Stable Additional Instructions: Rest. [facility] Continue Nebivolol (beta leidy) to manage your blood pressure and heart rate. Keep log of symptoms and BP readings. Return to the Emergency Department if you experience palpitations, rapid heart rate, or shortness of breath. Referrals: PARVIZ ROCA (PCP) Time of Disposition: 12:48 ATTESTATION BY PHYSICIAN I PERFORMED THE SUBSTANTIVE PORTION OF THE VISIT. I HAVE REVIEWED AND PERSONALLY MADE AND APPROVED THE MANAGEMENT PLAN THAT IS DOCUMENTED IN THE NOTE BY MYSELF FOR THE A PP. VANI JEFFREY Mar 22, 2025 10:46 NORRIS ARIAS MD Mar 24, 2025 07:38
[2025-03-22 11:26] LABS: IMMATURE GRANULOCYTE ABSOLUTE 0.04 K/uL (0-1); NUCLEATED RED BLOOD CELLS 0.0 % (0.0-0.19); PLATELET COUNT (AUTO) 369 K/uL (130-400); RED BLOOD CELL COUNT(AUTO) 3.96 MIL/uL (4.50-6.20); RED CELL DISTRIBUTION WIDTH 14.3 % (11.0-15.5); WHITE BLOOD COUNT (AUTO) 11.4 K/uL (4.8-10.8)
--- NOTE | 2025-03-22 11:33 | HMCIMG ---
EXAM: CR Chest, 1 View. CLINICAL HISTORY: shortness of breath COMPARISON: None provided. FINDINGS: LUNGS: There is no mass, infiltrate, or acute pulmonary abnormality. PLEURAL SPACES: No pleural effusion or pneumothorax. MEDIASTINUM: The cardiomediastinal silhouette is within normal limits. BONES: No acute osseous abnormality. IMPRESSION: No acute cardiopulmonary pathology is evident. /[place]
[2025-03-22 11:55] LABS: CREATININE 1.4 mg/dL (0.5-1.3); GLOMERULAR FILTR. RATE CALC 58.0 mL/min (>90); GLUCOSE,RANDOM 213.0 mg/dL (70-105); SODIUM SERUM 132.0 mmol/L (136-145); UREA NITROGEN, BLOOD 22.0 mg/dL (7-18)
[2025-03-22 12:00] LABS: ASPARTATE AMINOTRANSFERASE 10.0 U/L (10-37); TOTAL PROTEIN, SERUM 7.2 g/dL (6.0-8.3)
[2025-03-22 12:21] LABS: ADD UA MICROSCOPIC YES; APPEARANCE,URINE CLEAR (CLEAR); GLUCOSE, URINE (UA) 200 mg/dL (NEGATIVE); LEUKOCYTE ESTERASE ,URINE NEGATIVE Leu/uL (NEGATIVE); NITRATE,URINE NEGATIVE (NEGATIVE); OCCULT BLOOD,URINE SMALL (NEGATIVE)
[2025-03-22 12:45] LABS: SQUAMOUS EPITHELIAL CELL,UR None Seen /HPF (0-2)
[2025-03-22] MEDS ORDERED: MAGNESIUM OXIDE 400 MG TABLET PO ONE (13:00)
[2025-03-22] MEDS: MAGNESIUM 2GM PREMIX 50ML 50 ML IV SCH (13:11)
[2025-03-22 14:31] VITALS: BP 152/89; PULSE 76; RESP 20; TEMP 98.4; O2SAT 98
--- NOTE | 2025-03-22 18:50 | EKG ---
[facility] Test Date: 2025-03-22 Test Time: 10:57:02 Pat Name: RON ONEIL Department: ED Room: Gender: Global Cmo: [id number] : 1965 Requested By: VANI JEFFREY Order Number: [id number] Reading MD: Samuel Dunham Measurements Intervals [place] Rate: 120 P: 0 GA: 0 QRS: -2 QRSD: 80 T: 21 QT: 308 QTc: 436 Interpretive Statements Atrial fibrillation Compared to ECG 05/24/2023 21:06:35 No significant changes Electronically Signed On 03-23-2025 12:11:04 PHOTOGRAPHIC DEVELOPER AND PRINTER by Samuel Dunham Please click the below link to view image of tracing.
--- NOTE | 2025-03-22 18:50 | EKG ---
[facility] Test Date: 2025-03-22 Test Time: 11:32:25 Pat Name: RON ONEIL Department: ED Room: Gender: Director Of Cardiology: [facility] : 1965 Requested By: VANI JEFFREY Order Number: [id number] Reading MD: Samuel Dunham Measurements Intervals [place] Rate: 72 P: 49 RI: 151 QRS: -7 QRSD: 88 T: 14 QT: 374 QTc: 410 Interpretive Statements Sinus rhythm Compared to ECG 03/22/2025 10:57:02 Atrial fibrillation no longer present Electronically Signed On 03-23-2025 12:11:39 PIPELINE DISPATCH OPERATOR by Samuel Dunham Please click the below link to view image of tracing.
== END 2025-03-22 14:34 | disposition home or self-care (01) ==
LOC: EDH 10:41
DX: I48.20 Chronic atrial fibrillation, unspecified (principal); E83.42 Hypomagnesemia; E11.9 Type 2 diabetes mellitus without complications; I10 Essential (primary) hypertension; Z79.621 Long term (current) use of calcineurin inhibitor; Z79.624 Long term (current) use of inhibitors of nucleotide synthesis; Z79.82 Long term (current) use of aspirin; Z90.89 Acquired absence of other organs; Z94.0 Kidney transplant status
CPT/HCPCS: 99285; 96365; 71045; 80076; 83735; 84484; 80048; 83880; 85025; 81001; 36415; 93005 ×2; J3475; J3490

== ENCOUNTER → 2025-04-15 | Outpatient (CLI) | payer OTHER ==
--- NOTE | 2025-04-16 09:26 | HMCIMG ---
EXAM: CT Cardiac calcium scoring. CLINICAL HISTORY: CAD screening. TECHNIQUE: Thin collimated axial CT cardiac images were obtained. A CT scan is done according to ALARA (As Low As Reasonably Achievable). CONTRAST: None. COMPARISON: None provided. FINDINGS: Calcium Score: VESSEL Number of lesions Volume mm3 Equi. Mass/mg Calcium score LM 2 71.3 --.-- 81.5 LAD 7 190.8 --.-- 256.2 LCX 3 89.1 --.-- 127.4 RCA 2 10.2 --.-- 10.2 Total 14 361.4 --.-- 475.2 IMPRESSION: The calcium score is 475.2. This places the patient into 90th percentile in comparison to a group of patients asymptomatic for coronary artery disease with the same age and gender. This means that 90% of males aged 55-59 have a calcium score that is lower than the patient's. /[place]
== END | disposition home or self-care (01) ==
LOC: RAH 15:02
PROVIDERS: ATTEND Internal Medicine Cardiovascular Disease
DX: Z13.6 Encounter for screening for cardiovascular disorders (principal); I25.10 Atherosclerotic heart disease of native coronary artery without angina pectoris
CPT/HCPCS: 75571